=== PATIENT | male | born 1970 | race Caucasian/White ===

== ENCOUNTER 2020-08-11 13:58 | Emergency (ER) | payer OTHER ==
[~2020-08-11] VITALS: Ht 182.9 cm; Wt 131.1 kg
[2020-08-11 14:01] VITALS: BP 181/107
[2020-08-11] MEDS ORDERED: IBUPROFEN 800 MG TAB PO ONE (17:00)
[2020-08-11] MEDS ORDERED: LIDOCAINE 1% HCL (LOCAL ANESTH.) INJ 20ML MDV ONE (17:11)
[2020-08-11] MEDS ORDERED: LIDOCAINE 1% HCL (LOCAL ANESTH.) INJ 20ML MDV IJ ONE (17:15)
== END 2020-08-11 18:15 | disposition home or self-care (01) ==
LOC: ER 13:58
DX: S81.812A Laceration without foreign body, left lower leg, initial encounter (principal); S80.812A Abrasion, left lower leg, initial encounter; X58.XXXA Exposure to other specified factors, initial encounter; Y93.89 Activity, other specified; Y92.89 Other specified places as the place of occurrence of the external cause; Y99.8 Other external cause status; V49.9XXA Car occupant (driver) (passenger) injured in unspecified traffic accident, initial encounter
CPT/HCPCS: 12001; 73030; 73590; 99284; J2001